=== PATIENT | female | born 1975 | race Caucasian/White ===

== ENCOUNTER 2024-12-31 14:14 | Emergency (ER) | payer MEDICAID ==
[~2024-12-31] VITALS: Ht 162.6 cm; Wt 77.1 kg
[2024-12-31 14:17] VITALS: BP 131/52
[2024-12-31 16:23] VITALS: BP 131/52; TEMP 98; O2SAT 97
== END 2024-12-31 16:26 | disposition home or self-care (01) ==
LOC: ER 14:14
DX: R09.A9 Foreign body sensation, other site (principal)
CPT/HCPCS: 73090; 73120; A4606; A4663

== ENCOUNTER 2025-01-01 22:14 | Emergency (ER) | payer MEDICAID ==
[~2025-01-01] VITALS: Ht 162.6 cm; Wt 77.1 kg
[2025-01-01 22:14] VITALS: BP 124/77
[2025-01-01] MEDS ORDERED: TDAP DIPH,PERTUSS,TET VAC/PF 0.5 ML DISP.SYRIN IM ONE (22:46)
[2025-01-01] MEDS: TDAP DIPH,PERTUSS,TET VAC/PF 0.5 ML DISP.SYRIN IM ONE (22:48)
[2025-01-01 22:52] VITALS: BP 122/69; TEMP 98; O2SAT 97
== END 2025-01-01 22:55 | disposition home or self-care (01) ==
LOC: ER 22:19
DX: R21 Rash and other nonspecific skin eruption (principal)
CPT/HCPCS: 90715; A4606; A4663